=== PATIENT | female | born 1955 | race Caucasian/White ===

== ENCOUNTER 2018-08-15 00:59 | Observation (INO) ==
[2018-08-15 05:54] LABS: Hemoglobin 12.2 g/dL (11.5-15.4); Mean Corpuscular Hemoglobin 26.4 pg (28.0-33.3); Mean Corpuscular Volume 80.1 fL (83.0-100.0); Mean Platelet Volume 10.9 fL (9.4-12.4); Platelet Count 180 K/mcL (140-400); Red Blood Count 4.62 M/mcL (3.82-4.97); Red Cell Distribution Width 15.1 % (11.5-14.5)
[2018-08-15 06:13] LABS: Alanine Aminotransferase 15 Units/L (7-52); Albumin 3.8 g/dL (3.5-5.7); Albumin/Globulin Ratio 1.7 (1.1-2.2); Alkaline Phosphatase 68 Units/L (34-104); Aspartate Amino Transferase 15 Units/L (13-39); BUN/Creatinine Ratio 23 (6-26); Bilirubin,Total 0.5 mg/dL (0.3-1.0); Blood Urea Nitrogen 15 mg/dL (8-23); Calcium 8.5 mg/dL (8.6-10.3); Carbon Dioxide 24 mEq/L (23-29); Chloride 102 mEq/L (98-107); Globulin 2.3 g/dL (2.4-3.5); Glucose 189 mg/dL (70-105); Osmolality,Calculated 294 (280-300); Potassium 3.1 mEq/L (3.5-5.1); Sodium 139 mEq/L (136-145); Total Protein 6.1 g/dL (6.4-8.9); Troponin I < 0.03 ng/mL (< 0.04); eGFR For Non-African Americans > 60 (> 60)
[2018-08-15] MEDS ORDERED: Acetaminophen 325 MG TABLET PO PRN (08:27)
[2018-08-15] MEDS ORDERED: Naloxone 0.4 MG/ML INJ IVP PRN (08:27)
[2018-08-15] MEDS ORDERED: Ondansetron ODT 4 MG TAB.RAPDIS SL PRN (08:27)
[2018-08-15] MEDS ORDERED: *HR* HYDROcodone/Acet 5/325 mg TABLET PO PRN (08:27)
[2018-08-15 09:22] LABS: Cholesterol 100 mg/dL (< 200); HDL Cholesterol 50 mg/dL (40-59); LDL Cholesterol,Calculated 37 mg/dL (0-99); Triglycerides 67 mg/dL (< 150); Troponin I < 0.03 ng/mL (< 0.04)
[2018-08-15] MEDS ORDERED: Regadenoson 0.4 MG/5 ML SYRINGE IVP ONE (10:26)
--- NOTE | 2018-08-15 14:25 | Internal Med History&Physical ---
Date of Encounter: 08/15/18 Time of Encounter: 08:30 Internal Medicine - H&P: HPI Chief complaint: Chest pain Admitted From: Emergency Dept Plans for Post Hospital Care: Home History of present illness: Ms. Larose is a 63 year old female with a known past medical history of hypertension, hyperlipidemia, diabetes type II and morbidly obese patient was sent to [place] emergency room yesterday evening complaining about she just developed sudden onset of chest pressure, 8 of 10 in severity, located left chest wall region and non-radiating. Patient did mention her chest pain centers and shortness of breath, nausea and vomiting. She does work as a teacher in the school. Her mother recently a couple of days ago and she is going through lot of stress lately. She was transferred to our hospital for further care. When I examined the patient on the floor here, she is alert, awake, O x 3. Denied any more active chest pain. Denied any shortness of breath. However patient seems to be depressed. She denied any suicidal ideation. Past Med Surg Social Fam HX - Past Medical History Medical history: diabetes, hypertension Psychiatric history: anxiety, depression - Past Surgical History Additional surgical history: D&C, tubal - Social History Smoking Status: Never smoker Smokeless Tobacco Status: No Alcohol use: none Drug use: none - Family History Mother Living Status: Age at : 82 Cause of : alheimzers Hx Family Cardiac Disorders: Yes Father Living Status: Age at : 61 Cause of : cardiac Hx Family Cardiac Disorders: Yes Internal Medicine - H&P: Meds Empagliflozin [Jardiance] 10 mg PO DAILY 08/15/18 [History] Losartan Potassium [Cozaar] 100 mg PO DAILY 08/15/18 [History] Meloxicam [Mobic] 15 mg PO DAILY 08/15/18 [History] Metoprolol [Lopressor] 50 mg PO DAILY 08/15/18 [History] glipiZIDE [Glipizide] 10 mg PO BID 08/15/18 [History] hydroCHLOROthiazide [Hydrochlorothiazide] 25 mg PO DAILY 08/15/18 [History] Allergy/AdvReac Type Severity Reaction Status Date / Time No Known Allergies Allergy Verified 08/14/18 23:03 All Systems PM: A 10-system review of systems was performed and is negative for pertinent findings except as documented above in the HPI. Review of systems: All the systems are reviewed everything is benign except the systems and symptoms I mentioned in the history of present illness - Constitutional Vitals: Temp Pulse Resp BP Pulse Ox 98.4 F 81 20 147/78 94 08/15/18 12:47 08/15/18 12:47 08/15/18 12:47 08/15/18 12:47 08/15/18 12:47 General appearance: Present: cooperative, A&O X 3, no acute distress, answers questions appropriately Exam: See below - Head Head exam: Present: atraumatic, normal inspection - Neck Neck exam general surgery: Present: supple - Respiratory Respiratory exam: Present: decreased breath sounds. Absent: rales, respiratory distress, rhonchi, wheezes - Cardiovascular Cardiovascular exam: Present: RRR, +S1, +S2. Absent: tachycardia - GI/Abdominal GI/Abdominal exam: Present: normal bowel sounds, soft. Absent: rebound, rigid, tenderness - Extremities Exam Extremities exam: Absent: calf tenderness, pedal edema, tenderness - Back Exam Back exam: Absent: CVA tenderness (L), CVA tenderness (R) - Neurological Exam Neurological exam: Present: alert, oriented X3 - Psychiatric Psychiatric exam: Present: depressed. Absent: homicidal ideation, suicidal ideation - Skin Skin exam: Absent: rash Internal Med - H&P Results - Labs CBC & Chem 7: 08/15/18 05:32 08/15/18 05:32 Labs: Short CBC 08/15/18 Range/Units 05:32 WBC 5.7 (4.3-11.1) K/mcL Hgb 12.2 (11.5-15.4) g/dL Hct 37.0 (35.3-44.9) % Plt Count 180 (140-400) K/mcL BMP 08/15/18 05:32 Sodium 139 Potassium 3.1 L Chloride 102 Carbon Dioxide 24 BUN 15 Creatinine 0.66 Glucose 189 H Calcium 8.5 L Cardiac Enzymes 08/15/18 08/15/18 Range/Units 05:32 08:40 Troponin I < 0.03 < 0.03 (< 0.04) ng/mL Liver Function 08/15/18 Range/Units 05:32 Total Bilirubin 0.5 (0.3-1.0) mg/dL AST 15 (13-39) Units/L ALT 15 (7-52) Units/L Alkaline Phosphatase 68 (34-104) Units/L Albumin 3.8 (3.5-5.7) g/dL - Assessment and Plan (1) Chest pain Current Visit: No Status: Acute Assessment and plan: Will admit the pt into Tele for observation Will place pt on cardiac exercise physiologist check serial troponin so far negative troponin EKG reviewed - NSR , no acute ischemic changes noticed CTA of the chest - no PE will start pt on ASA and Nitro PRN for pain Will check FL Will get stress test since pt is high risk for ACS she may need 2 days stress test due to high BMI Also will check 2 D Echo Qualifiers: Chest pain type: unspecified Qualified Code(s): R07.9 - Chest pain, unspecified (2) Hypertension Current Visit: Yes Status: Acute Assessment and plan: Resumed all home medications stable blood pressure with home medications Qualifiers: Hypertension type: essential hypertension Qualified Code(s): I10 - Essential (primary) hypertension (3) Hyperlipidemia Current Visit: Yes Status: Acute Assessment and plan: Will check lipid profile Qualifiers: Hyperlipidemia type: unspecified Qualified Code(s): E78.5 - Hyperlipidemia, unspecified (4) Diabetes mellitus Current Visit: Yes Status: Acute Assessment and plan: On ADA diet placed her on ISS will check HbA1C in Am Qualifiers: Diabetes mellitus type: type 2 Diabetes mellitus termite renewal inspector insulin use: without half-way use Diabetes mellitus complication status: without complication Qualified Code(s): E11.9 - Type 2 diabetes mellitus without complications (5) Morbid obesity with BMI of 45.0-49.9, adult Current Visit: Yes Status: Acute Assessment and plan: counseled to loose weight she might have MIMI recommend out pt sleep study - Time Spent With Patient Total time spent is greater than 50% in coordination of care (as documented) at patient's floor/unit and/or counseling patient:
[2018-08-15] MEDS ORDERED: D5% in Water 1,000 ML IVC PRN (14:28)
[2018-08-15] MEDS ORDERED: Dextrose Gel 15 GM/37.5 ML TUBE PO PRN ×2 (14:28)
[2018-08-15] MEDS ORDERED: *HR* Dextrose 50 % in Water (Syg) 50 ML SYRINGE IVP PRN (14:28)
[2018-08-15] MEDS: hydroCHLOROthiazide 25 MG TABLET PO SCH (16:19)
[2018-08-15] MEDS: Insulin LISPRO 300 UNITS/3 ML VIAL SQ SCH ×2 (16:57→21:48)
[2018-08-16] MEDS: Insulin LISPRO 300 UNITS/3 ML VIAL SQ SCH ×4 (08:16→20:52)
[2018-08-16] MEDS: hydroCHLOROthiazide 25 MG TABLET PO SCH (08:16)
[2018-08-16] MEDS: (Empagliflozin [Jardiance] 10 MG) PO SCH (08:17)
--- NOTE | 2018-08-16 13:04 | Cardiology Consult Note ---
<SheltonIsabelle J - Last Filed: 08/16/18 13:00> Date of Encounter: 08/16/18 Time of Encounter: 12:00 Assessment and Plan (1) Chest pain Current Visit: No Status: Acute Per cardiology: -Admitted with typical anginal symptoms. Currently chest pain free. -Troponins neagtive x3. -EcG with no acute ishchemic changes noted. -TTE with LVEF 55-60%, no segmental wall motion abnormalities noted. -Stress test abnormal with inferior and inferolateral ischemia, SDS 6. -On BB. -With typical angina, and abnromal stress test, recommend LHC. Risks versus benefits of LHC explained to patient, who states understanding and agreeable to proceed. -Will start ASA and statin. Qualifiers: Chest pain type: chest pain due to myocardial ischemia Ischemic chest pain type: stable angina pectoris Qualified Code(s): I20.8 - Other forms of angina pectoris (2) Abnormal stress test Current Visit: Yes Status: Acute Per cardiology: -Stress abnormal as above. -See chest pain. Discussion w patient/family: The assessment and plan as outlined above was discussed with the patient who expressed understanding and agreement. All questions were answered. Thank you for involving us in the care of your patient. Please call with any questions. Discussed and reviewed with . History of Present Illness Consult date: 08/16/18 Requesting physician: Mirian Samuel Consult reason: abnormal stress Chief complaint: chest pain History of present illness: Ms. Larose is a 63 year old female with a relevant past medical history of HTN, DM, depression, family history of CAD, who presented to [facility] with complaints of chest pain. Patient states she just recently lost her mom. States it was her first day back to work and she was walking the kids to the bus, when she had sudden onset of left chest pressure. No radiation. Reports nausea and vomiting. States she drove home, however does not remember driving home and woke up in her nightgown and had lost control of her bladder. Denies current chest pain. Denies shortness of breath. Denies increased fatigue. Past Med Surg Social Fam HX - Past Medical History Attestation: Yes The following information was validated with the patient. Source: patient, old records reviewed Medical history: diabetes, hypertension Psychiatric history: anxiety, depression - Past Surgical History Additional surgical history: D&C, tubal - Social History Smoking Status: Never smoker Smokeless Tobacco Status: No Alcohol use: none Drug use: none - Family History Mother Living Status: Age at : 82 Cause of : alheimzers Hx Family Cardiac Disorders: Yes Father Living Status: Age at : 61 Cause of : cardiac Hx Family Cardiac Disorders: Yes Medications and Allergies Empagliflozin [Jardiance] 10 mg PO DAILY 08/15/18 [History] Losartan Potassium [Cozaar] 100 mg PO DAILY 08/15/18 [History] Meloxicam [Mobic] 15 mg PO DAILY 08/15/18 [History] Metoprolol Succinate [Toprol Xl] 50 mg PO DAILY 08/15/18 [History] glipiZIDE [Glipizide] 10 mg PO BID 08/15/18 [History] hydroCHLOROthiazide [Hydrochlorothiazide] 25 mg PO DAILY 08/15/18 [History] Allergy/AdvReac Type Severity Reaction Status Date / Time metformin AdvReac Diarrhea Verified 08/15/18 16:38 All Systems Review: The remainder of the systems were reviewed and are negative - Cardiovascular Cardiovascular: as per HPI, chest pain with exertion - Gastrointestinal Gastrointestinal: nausea Physical Examination Vital Signs, Last 4 Hours Temp Pulse Resp BP Pulse Ox 08/16/18 10:50 98.4 F 58 16 103/64 96 General: Conversant, No Apparent Distress HEENT: Atraumatic, Normocephaly, Mucus Membranes Moist Neck: No JVD, Normal carotid pulses Cardiac: Reg Rate and Rhythm, Normal S1 and S2, No Murmur Lungs: Normal Breath Sounds, No Wheeze, Rales, Rhonchi Neuro: Alert and responsive, No focal deficits noted Abdomen: Soft, Non-Tender Skin: No rashes noted on visualized skin Musculoskeletal: No Chest Wall Tenderness Extremities: No Clubbing, No Cyanosis, No Edema, Normal Pulses Results 08/15/18 05:32 08/15/18 05:32 Lab Results Impressions Echocardiogram 08/15/18 14:31 Impressions: LVEF 55-60%. Normal LV chamber size, wall thickness and function. Normal right ventricular structure and function. No significant valvular dysfunction. No pulmonary hypertension. Left Ventricular Wall Motion: Rest Echo Findings All wall segments showed normal motion. Findings: Study Quality * Technically adequate exam. ECG Findings * Normal sinus rhythm. Left Ventricle * LVEF 55-60%. * Normal LV chamber size, wall thickness and systolic function. * Normal left ventricular diastolic function. Right Ventricle * Normal right ventricular structure and function. Left Atrium * Normal left atrial size. Right Atrium * Normal right atrial size. Interatrial Septum * Interatrial septum not well evaluated. * No evidence of PFO by color Doppler. Aortic Valve * Trileaflet aortic valve with normal function. * No aortic stenosis. * No aortic regurgitation. Mitral Valve * Normal mitral valve structure. * No mitral stenosis. * Trace mitral regurgitation. Tricuspid Valve * Normal tricuspid valve structure. * No tricuspid stenosis. * Trace tricuspid regurgitation. * Estimated RVSP is 19 mmHg. * Estimated RA pressure is 3 mmHg. * No pulmonary hypertension. Pulmonic Valve * Pulmonic valve is not well visualized. * No pulmonic stenosis. * No pulmonic regurgitation. Aorta * Normally sized aortic root. Pericardium * The pericardium appears normal. IVC * The IVC is not dilated. * > 50% respiratory change Active Medications Acetaminophen (Tylenol) 650 mg PO Q6HR PRN PRN Reason: Mild Pain/Fever Stop: 02/14/19 08:28 Hydrocodone Bitart/Acetaminophen ([place] 5-325 Mg) 1 tab PO Q6HR PRN PRN Reason: Moderate Pain Stop: 02/14/19 08:28 Aspirin (Aspirin Ec) 81 mg PO DAILY GEE Stop: 02/15/19 12:16 Atorvastatin Calcium (Lipitor) 40 mg PO HS GEE Stop: 02/15/19 21:01 Calcium Carbonate (Tums) 1,000 mg PO Q4HR PRN; Protocol PRN Reason: Heartburn Stop: 02/14/19 10:02 Dextrose/Water (Dextrose 50% (Syg)) 25 ml IVP AD PRN PRN Reason: Hypoglycemia Stop: 02/14/19 14:29 Docusate Sodium (Colace) 100 mg PO BID PRN PRN Reason: Constipation Stop: 02/14/19 09:01 Glucagon (Glucagen) 1 mg IM ONCE PRN PRN Reason: Hypoglycemia Stop: 02/14/19 14:29 Glucose (Gluctose) 15 gm PO ONCE PRN PRN Reason: Hypoglycemia Stop: 02/14/19 14:29 Glucose (Gluctose) 30 gm PO ONCE PRN PRN Reason: Hypoglycemia Stop: 02/14/19 14:29 Hydrochlorothiazide (Hydrochlorothiazide) 25 mg PO DAILY [facility]; Protocol Stop: 02/14/19 14:46 Last Admin: 08/16/18 08:16 Dose: 25 mg Dextrose (Dextrose 5%) 1,000 mls @ 100 mls/hr IVC .Q10H PRN PRN Reason: HYPOGLYCEMIA Stop: 02/14/19 14:29 Insulin Human Lispro (Humalog) 0 units SQ HS [facility]; Protocol Stop: 02/14/19 21:01 Last Admin: 08/15/18 21:48 Dose: Not Given Insulin Human Lispro (Humalog) 0 units SQ TIDAC [facility]; Protocol Stop: 02/14/19 16:31 Last Admin: 08/16/18 08:16 Dose: Not Given Losartan Potassium (Cozaar) 100 mg PO DAILY [facility] Stop: 02/14/19 14:46 Last Admin: 08/16/18 08:16 Dose: 100 mg Metoprolol Tartrate (Lopressor) 50 mg PO DAILY [facility] Stop: 02/14/19 14:46 Last Admin: 08/16/18 08:16 Dose: 50 mg Naloxone HCl (Narcan) 0.4 mg IVP Q2M PRN PRN Reason: SEE COMMENTS Stop: 02/14/19 08:28 Omeprazole (Prilosec) 20 mg PO DAILY@0630 [facility]; Protocol Stop: 02/15/19 06:31 Last Admin: 08/16/18 06:06 Dose: Not Given Ondansetron HCl (Zofran Odt) 4 mg SL Q8HR PRN PRN Reason: Nausea And Vomiting Stop: 02/14/19 08:28 Pharmacy Profile Note (Patient Taking Own Medication) 0 each PO DAILY [facility] Stop: 02/15/19 09:01 Last Admin: 08/16/18 08:17 Dose: Not Given Potassium Chloride (Potassium Chloride) 40 meq PO ONCE ONE Stop: 08/16/18 12:12 Laboratory Tests 08/15/18 08/15/18 08/15/18 05:32 05:32 08:40 Hgb 12.2 Plt Count 180 Potassium 3.1 L Creatinine 0.66 Troponin I < 0.03 < 0.03 08/15/18 14:36 Hgb Plt Count Potassium Creatinine Troponin I < 0.03 - Imaging and Cardiology Chest Xray: report reviewed Stress Test: report reviewed Echo: report reviewed Cardiac cath: pending - EKG Interpretation EKG results cardiology: personally reviewed (ECG with ST, HR 106.), other (Telemetry reviewed with average HR previous 12 hours noted to be 64, SR. PVCs and PACs noted.) Consult Discharge Plan - Plan Referrals: Caio Bauman MD [Primary Care Provider] - 08/21/18 2:30 pm <Atilio Ramírez A - Last Filed: 08/16/18 14:57> Date of Encounter: 08/16/18 - Attending Attestation I have personally performed a face to face evaluation on this patient. I have reviewed and agree with the documented findings and care plan as documented by the [facility]. History and Exam by me shows: 63-year-old pleasant female with history of hypertension, diabetes, obesity presented with angina and found to have myocardial perfusion imaging positive for ischemia (reversible mid-basal inferior and inferolateral perfusion defect of moderate size and moderate intensity, SDS = 6) AAOX3 in NAD at the bedside Hemodynamically stable Cardiopulmonary exam revealed S1, S2, no murmur; clear lungs Rhythm reviewed - sinus rhythm, no acute ST T changes Echo preserved EF, no significant valvular heart disease Impression/plan: Atypical chest pain/ abnormal stress test- I agree with cardiac catheterization. Details of procedure, risks benefits and alternatives were explained to the patient and she wishes to proceed. Continue aspirin, beta long, high intensity statin. Lifestyle modification to lose weight. Further recommendations to follow. Atilio Agosto MD FAC Assessment and Plan Discussion w patient/family: The assessment and plan as outlined above was discussed with the patient and/or family members who expressed understanding and agreement. All questions were answered. Thank you for involving us in the care of your patient. Please call with any questions. History of Present Illness History of present illness: Ms. Larose is a 63 year old female All Systems Review: The remainder of the systems were reviewed and are negative Physical Examination Vital Signs, Last 4 Hours Temp Pulse Resp BP Pulse Ox 08/16/18 10:50 98.4 F 58 16 103/64 96 Results 08/15/18 05:32 08/15/18 05:32 Lab Results 08/15/18 14:36 Troponin I < 0.03
--- NOTE | 2018-08-16 13:50 | Internal Med Progress Note ---
Hospitalist Progress Note - Encounter Date of Encounter: 08/16/18 Time of Encounter: 13:47 - Subjective Interval History: Seen and examined at bedside. Patient is new to me, information obtained from chart review and patient report. Overall says she feels better. No further chest pain or shortness of breath. She does report multiple loose stools and mild nausea. Does not have much of an appetite. - Exam Vitals: Temp Pulse Resp BP Pulse Ox 98.4 F 58 16 103/64 96 08/16/18 10:50 08/16/18 10:50 08/16/18 10:50 08/16/18 10:50 08/16/18 10:50 Exam: General appearance: Present: A&O X 3, pleasant, no acute distress - Head Head exam: Present: atraumatic, normocephalic - Eye Eye exam: Present: PERRL, conjuntiva pink, sclera anicteric Pupils: Present: PERRL - Neck Neck exam general surgery: Present: supple, trachea midline. Absent: lymphadenopathy - Respiratory Respiratory exam: Present: chest wall tenderness, CTAB. Absent: accessory muscle use, rales, rhonchi, wheezes - Cardiovascular Cardiovascular exam: Present: RRR, +S1, +S2. Absent: diastolic murmur, gallop, rubs, systolic murmur - GI/Abdominal GI/Abdominal exam: Present: normal bowel sounds, soft, no peritoneal signs. Absent: distended, tenderness - Extremities Exam Extremities exam: Present: warm, radial pulses palpable and symmetrical. Absent: calf tenderness, cyanotic, pedal edema - Neurological Exam Neurological exam: Present: CN II-XII intact, oriented X3, no focal deficits. Absent: pronater drift, facial droop, speech deficit - Skin Skin exam: Present: dry, intact - Assessment and Plan (1) Chest pain Current Visit: No Status: Acute Assessment and Plan: presented with nonexertional/nonradiating chest pain. Serial troponin negative. EKG without acute ST changes. TTE with EF 55%. Stress test with moderate size reversible defect. NPO. [facility] planned for 08/16. Cardiology following (2) Hypertension Current Visit: Yes Status: Acute Assessment and Plan: per hx. BP controlled. Cont home BP medication. Monitor BP and titrate PRN (3) Hyperlipidemia Current Visit: Yes Status: Acute Assessment and Plan: LDL 37; statin initiated per cardiology. (4) Diabetes mellitus Current Visit: Yes Status: Acute Assessment and Plan: per hx. Holding home oral hypoglycemics. SSI. Monitor blood sugar and titrate PRN (5) Morbid obesity with BMI of 45.0-49.9, adult Current Visit: Yes Status: Acute Assessment and Plan: counseled to loose weight she might have MIMI recommend out pt sleep study - Time Spent with Patient Total time spent is greater than 50% in coordination of care (as documented) at patient's floor/unit and/or counseling patient: Internal Medicine: Result - Labs CBC & Chem 7: 08/15/18 05:32 08/15/18 05:32 Labs: Cardiac Enzymes 08/15/18 Range/Units 14:36 Troponin I < 0.03 (< 0.04) ng/mL - Impressions Impressions Echocardiogram 08/15/18 14:31 Impressions: LVEF 55-60%. Normal LV chamber size, wall thickness and function. Normal right ventricular structure and function. No significant valvular dysfunction. No pulmonary hypertension. Left Ventricular Wall Motion: Rest Echo Findings All wall segments showed normal motion. Findings: Study Quality * Technically adequate exam. ECG Findings * Normal sinus rhythm. Left Ventricle * LVEF 55-60%. * Normal LV chamber size, wall thickness and systolic function. * Normal left ventricular diastolic function. Right Ventricle * Normal right ventricular structure and function. Left Atrium * Normal left atrial size. Right Atrium * Normal right atrial size. Interatrial Septum * Interatrial septum not well evaluated. * No evidence of PFO by color Doppler. Aortic Valve * Trileaflet aortic valve with normal function. * No aortic stenosis. * No aortic regurgitation. Mitral Valve * Normal mitral valve structure. * No mitral stenosis. * Trace mitral regurgitation. Tricuspid Valve * Normal tricuspid valve structure. * No tricuspid stenosis. * Trace tricuspid regurgitation. * Estimated RVSP is 19 mmHg. * Estimated RA pressure is 3 mmHg. * No pulmonary hypertension. Pulmonic Valve * Pulmonic valve is not well visualized. * No pulmonic stenosis. * No pulmonic regurgitation. Aorta * Normally sized aortic root. Pericardium * The pericardium appears normal. IVC * The IVC is not dilated. * > 50% respiratory change Consult Discharge Plan - Plan Referrals: Caio Bauman MD [Primary Care Provider] - 04/10/19 2:30 pm (1) Chest pain Qualifiers: Chest pain type: chest pain due to myocardial ischemia Ischemic chest pain type: stable angina pectoris Qualified Code(s): I20.8 - Other forms of angina pectoris (2) Hypertension Qualifiers: Hypertension type: essential hypertension Qualified Code(s): I10 - Essential (primary) hypertension (3) Hyperlipidemia Qualifiers: Hyperlipidemia type: unspecified Qualified Code(s): E78.5 - Hyperlipidemia, unspecified (4) Diabetes mellitus Qualifiers: Diabetes mellitus type: type 2 Diabetes mellitus intermediate project manager insulin use: w ithout detention use Diabetes mellitus complication status: without compli cation Qualified Code(s): E11.9 - Type 2 diabetes mellitus without complic ations
[2018-08-16] MEDS: Aspirin Enteric Coated 81 MG Tablet PO SCH (14:02)
--- NOTE | 2018-08-16 15:09 | Pre-Sedation Evaluation ---
Pre-sedation evaluation - Pre-sedation checklist Date of procedure: 08/16/18 Procedure: LHC Recent Vitals: Last Vital Signs Temp 98.4 F 08/16/18 10:50 Pulse 58 08/16/18 10:50 Resp 16 08/16/18 10:50 BP 103/64 08/16/18 10:50 Pulse Ox 96 08/16/18 10:50 ASA Classification *see protocol: CLASS II-Mild systemic disease Cardiac Registry (Cardio Only) - Functional Capacity Functional Capacity: >=4 METS with symptoms - Clincal Frailty Scale Clinical Frailty Scale: Managing Well
[2018-08-16] MEDS ORDERED: Nitroglycerin 1,000 MCG/10 ML VIAL IV ONE (15:21)
[2018-08-16] MEDS ORDERED: *HR* Heparin 10,000 UNIT/10 ML VIAL ONE (15:21)
[2018-08-16] MEDS ORDERED: 0.9 % Sodium Chloride 1,000 ML ONE ×2 (15:21→16:04)
[2018-08-16] MEDS ORDERED: Heparin 1,000 UNITS/500 mL 500 ML ONE (15:21)
[2018-08-16] MEDS ORDERED: ISOVUE-370 200 ML INFUS..BTL ONE (15:21)
[2018-08-16] MEDS ORDERED: *HR* Midazolam HCl 2 MG/2 ML VIAL ONE (17:31)
[2018-08-16] MEDS ORDERED: *HR* FentaNYL (PF) 100 MCG/2 ML VIAL ONE (17:31)
[2018-08-16] MEDS ORDERED: Water for inj. (sterile) 10 ML IV ONE (17:58)
--- NOTE | 2018-08-16 18:22 | Invasive Diagnostic Lab Proc ---
Name: Ashley Larose Date of Study: 08/16/2018 Date: 1955 Ht: 61.8in Medical Record#: [id number] Age: 63 Wt: 257.94lb Gender: Female BSA: 2.13 Order #: [id number] BMI: 47.47 Physicians Procedure Physician: Evens Green MD Referring MD: Referring MD: Staff Name Position Time In Melissa Quigley RT (R) Scrub 04:17 PM ArielMichael RT (R) Monitor 04:17 PM Phyllis Campbell RN Outpatient Facility Physical Therapist 04:18 PM Debora Hernandez RN Outpatient Facility Physical Therapist 05:52 PM La Nena Bahena RN Outpatient Facility Physical Therapist 05:59 PM Indications Indication Abnormal Test - Stress Procedures Performed Procedure L HRT ARTERY/VENTRICLE ANGIO Pre-Procedure Checklist Informed consent is complete signed and on chart. H&P is on chart. ID band is on and ID verified with patient. Patient NPO for procedure The procedure was described for the patient and questions were answered. Blood Pressure: 103/64 ECG is on chart. Rhythm: NSR Plan of Care Patient will tolerate the procedure without complications. Adequate level of comfort will be maintained. Hemodynamics will remain stable Patient will recover from procedure without complications. Respiratory function will be maintained. Cardiac rhythm will remain stable. Patient temperature will be maintained. Patient and/or family have verbalized understanding of the procedure. Patient Education Chief Complaint/Reason for Test: Cardiac Cath Developmental Category: Adult (18-64 years) Developmentally Appropriate for Age: Yes Learning Barriers: None Education Needs: Procedure Education Method: Verbal Information Taught: Cardiac Cath Educational Evaluation: Able to repeat information Intravenous Access Time IV Size Location DC'd Fluid/Drip Rate Units RN 12:58 PM 20g 1 1/4" Patent On Arrival Rt Antecubital 0.9NaCl 25 mg Phyllis Campbell RN 12:58 PM 20g 1 1/4" Patent On Arrival Rt Hand Allergies metformin Vital Signs Time BP (mmHg) HR (bpm) O2 Sat. RR (bpm) LOC 04:19 PM 154 / 80 61 97 % 15 5 = Fully awake and oriented or at pre-proc level 05:31 PM 154 / 80 62 97 % 15 05:36 PM 128 / 62 65 99 % 21 05:41 PM 123 / 60 62 99 % 17 05:46 PM 149 / 74 58 99 % 12 05:51 PM 128 / 67 61 100 % 14 05:56 PM 136 / 68 58 100 % 25 Procedural Medications Time Medication Dose Units Method Given By 05:30 PM Oxygen 2 L/min nasal cannula Phyllis Campbell RN 05:32 PM Versed 1 mg Intravenous Phyllis Campbell RN 05:32 PM Fentanyl 50 mcg Intravenous Phyllis Campbell RN 05:44 PM Lidocaine 2% 20 ml Subcutaneous Evens Green MD 05:46 PM Versed 0.5 mg Intravenous Phyllis Campbell RN 05:46 PM Fentanyl 25 mcg Intravenous Phyllis Campbell RN 05:56 PM Ancef 1 gram Intravenous Debora Hernandez RN ASA Classification: CLASS II- Mild systemic disease (i.e. well-controlled diabetes, hypertension, asthma, cigarette smoking) Sharron Score Preprocedure Postprocedure Activity 2- Moves 4 extremities sustained head lift Activity 2- Moves 4 extremities sustained head lift Circulation 2- SBP +/= 20 points of pre-anesthetic level Circulation 2- SBP +/= 20 points of pre-anesthetic level Consciousness 2- Awake and alert oriented x 3 Consciousness 2- Awake and alert oriented x 3 O2 Saturation 2- Able to maintain O2 satruation of 92% on room air O2 Saturation 2- Able to maintain O2 satruation of 92% on room air Respiratory 2- Able to deep breathe and cough well Respiratory 2- Able to deep breathe and cough well Total Score 10 Total Score 10 Contrast Agent: Isovue Diagnostic Contrast: 46 ml Total Contrast: 46 ml Fluoro Dose: 22 mGy Procedure Log Time Note Enter By 04:16 PM CathStat 04:17 PM Pt arrived to rn labor and delivery 2 at 16:17 04:17 PM Patient charges- Angio tray pack, Navilyst 3mm J, Pulse Oximetry and ACIST tubing and transducer 04:17 PM Melissa Quigley RT (R) Position: Scrub Time in: 16:17 04:18 PM Michael George RT (R) Position: Monitor Time in: 16:17 04:18 PM Phyllis Campbell RN Position: Outpatient Facility Physical Therapist Time in: 16:18 04:19 PM Case Delayed No [email or web address] 04:19 PM Physician arrived 16:19 04:19 PM ASA Class CLASS II- Mild systemic disease (i.e. well-controlled diabetes, hypertension, asthma, cigarette smoking) [email or web address] 04:19 PM Meet and greet completed [email or web address] 04:19 PM Sign in performed according to hospital policy. Informed consent was obtained. [email or web address] 04:19 PM Time: 16:19 Patient comfortable and pain free: Yes [email or web address] 04:19 PM Time: 16:19LOC: 5 = Fully awake and oriented or at pre-proc level [email or web address] 04:21 PM Patient remains in Manager Equipment 2 due to a stemi. [email or web address] 04:21 PM Patients stated would be okay to stay in Lab on cart during other procedure. [email or web address] 05:29 PM Sign in performed according to hospital policy. Informed consent was obtained. Second sign in due to physician leaving for a stemi. [email or web address] 05:29 PM Procedure start 17:29 [email or web address] 05:30 PM Hair removed from procedure site in procedure lab using clippers. Bilateral groin prepped with Chloraprep by Melissa Quigley (Jennifer), then patient was draped. Skin intact. [email or web address] 05:30 PM Time: 17:30 Oxygen on at 2 L/min per nasal cannula by Phyllis Campbell RN ilson 05:30 PM Recorded ECG: HR=60 Condition=Condition 1 05:30 PM Vitals capture started with the following parameters, Patient=Adult, Interval=5 min, Initial Tboeppjh=587 mmHg, Deflation Rate=5 mmHg, Cuff placed on Right Arm 05:31 PM HR=62 bpm, GMAV=814/80 mmhg, SpO2=97.0 %, Resp=15 B/min 05:32 PM Time: 17:32 Versed 1 mg Intravenous Given by Phyllis Campbell RN 05:32 PM Time: 17:32 Fentanyl 50 mcg Intravenous Given by Phyllis Campbell RN 05:36 PM HR=65 bpm, DOIA=253/62 mmhg, SpO2=99.0 %, Resp=21 B/min 05:38 PM Pressure channel 1 zeroed. 05:40 PM Pressure channel 1 zeroed. 05:41 PM HR=62 bpm, QHKH=967/60 mmhg, SpO2=99.0 %, Resp=17 B/min 05:43 PM Time out was performed according to hospital policy. Conscious sedation and anesthesia was achieved (see medication log with in this report above) [email or web address] 05:45 PM Time: 17:44 20 ml Lidocaine 2% to right groin Subcutaneous Given by Evens Green MD 05:45 PM Micro-Introducer Kit utilized for sheath placement [email or web address] 05:46 PM Time: 17:46 Versed 0.5 mg Intravenous Given by Phyllis Campbell RN 05:46 PM Time: 17:46 Fentanyl 25 mcg Intravenous Given by Phyllis Campbell RN 05:46 PM HR=58 bpm, YDNS=807/74 mmhg, SpO2=99.0 %, Resp=12 B/min 05:47 PM hand injected femoral angiogram 3 cc contrast [email or web address] 05:47 PM Access obtained by percutaneous puncture. 6Fr 10cm Terumo Aspen sheath placed in right Femoral artery. [id number] [email or web address] 05:48 PM 0.035 145cm Navilyst 3mmJ wire [id number] [email or web address] 05:48 PM 5Fr FR 4 catheter inserted over the wire [facility] bw 05:48 PM Recorded Pressure: Ao, HR=60, Condition=Condition 1 (Aorta) Ao 99/47/69 05:49 PM RCA angiography performed in multiple views. [email or web address] 05:49 PM Catheter removed [email or web address] 05:49 PM 5Fr FL 4 catheter inserted over the wire [facility] bw 05:51 PM LCA angiography performed in multiple views. [email or web address] 05:51 PM Recorded Pressure: Ao, HR=62, Condition=Condition 1 (Aorta) Ao 90/55/71 05:51 PM Coronary Dominance: Left [email or web address] 05:51 PM Lesion found in Proximal LMCA. Pre Stenosis: 25 Pre MONIQUE Flow: [email or web address] 05:51 PM HR=61 bpm, VWMU=989/67 mmhg, NgN2=865.0 %, Resp=14 B/min 05:51 PM Left Main Coronary Artery with 25% stenosis [email or web address] 05:52 PM Debora Hernandez RN Position: Outpatient Facility Physical Therapist Time in: 17:52 to relieve Phyllis Campbell RN 05:53 PM Catheter removed bw 05:53 PM Lesion found in Distal RCA. Pre Stenosis: 25 Pre MONIQUE Flow: 2 05:53 PM Right Coronary, Right Posterior Descending Arteries with Right Posterolateral and Acute Marginal branches with 25 % stenosis. If graft is supplying this area, 0 % stenosis [email or web address] 05:53 PM Pressure channel 1 zero failed. 05:53 PM Pressure channel 1 zero failed. 05:53 PM Pressure channel 1 zeroed. 05:54 PM Catheter crossed the aortic valve and was selectively placed in the left ventricle. Pressures recorded on pullback for left heart catheterization. [email or web address] 05:54 PM Recorded Pressure: LV, HR=62, Condition=Condition 1 (Left Ventricle) LV 118/-12/7 05:54 PM Recorded Pressure: LV, Ao, HR=59, Condition=Condition 1 (Left Ventricle) LV 117/-14/0, (Aorta) Ao ?/?/? 05:54 PM Catheter removed bw 05:56 PM HR=58 bpm, JOES=375/68 mmhg, IdF7=543.0 %, Resp=25 B/min 05:56 PM Time: 17:56 Ancef 1 gram Intravenous Given by Debora Hernandez RN [facility] 05:57 PM Arterial sheath pulled, Angio-seal closure device used and was Successful [id number] S/N. 05:57 PM Procedure completed at 17:57 08/16/2018 [facility] 05:59 PM Sign out completed: Radiation Dose 13.4 Gy, 22.3 mGy/cm2 Fluoro Time: 1.4 Isovue 370 - 200ml contrast 46 ml given by Evens Green MD. Complications: None. The patient was discharged out of the ballistics [facility] in stable condition. Sedation minutes 26. Cardiac Rehab Consult needed: No. Confirmed administered medications: Yes [facility] 05:59 PM Isovue 370 - 200ml,1 Bottle(s) used. 05:59 PM La Nena Bahena RN Position: Outpatient Facility Physical Therapist Time in: 17:59 2 05:59 PM Estimated Blood Loss: less than 20cc [email or web address] 05:59 PM Post ECG NSR [email or web address] 06:00 PM Post Blood Pressure 136/68 [email or web address] 06:00 PM Information taught Cardiac Cath and Angioseal [email or web address] 06:00 PM Education needs Procedure, Plan of Care, and Disease Process [email or web address] 06:00 PM Learning barriers :Sedated [email or web address] 06:00 PM Education Methods Verbal [email or web address] 06:00 PM Education evaluation Able to repeat information [email or web address] 06:00 PM Site status No bleeding/hematoma - Rt Groin as reported by Melissa Quigley RT (R) at 18:00 [email or web address] 06:00 PM Opsite applied [email or web address] 06:00 PM Delay to floor No [email or web address] 06:01 PM Family placed in consult room. [email or web address] 06:01 PM Complications: None [email or web address] 06:11 PM Report given to [place] MUNIZ Pt taken to Holding room Room #33. 18:07 [email or web address] 06:12 PM Patient out of room: 18:12 [email or web address] Complications Complication None None Hemodynamics Pressures Site Systolic/A Wave Diastolic/V Wave Mean AO 99 47 69 AO 90 55 71 LV 118 -12 7 LV 117 -14 0 AO Post Procedure Information Blood Pressure: 136/68 mmHg Rhythm: NSR Post procedural instructions were given Closure Device Time Device Success/Fail 08/16/2018 5:57:00 PM Angio-Seal VIP Successful Site Checks Time Location Status Staff Sheath In? Note 06:00 PM Rt Groin No bleeding/hematoma Melissa Quigley RT (R) Pulses Time Site Pre-Procedure Post-Procedure Note 08/16/2018 12:58:00 PM Bilateral DP & PT 2+ 2+ 08/16/2018 12:58:00 PM Bilateral radial 2+ Updated by Michael George RT (R) on 08/16/2018 6:13:31 PM Michael George RT electronically signed on 08/16/2018 6:14:01 PM with status of Final
[2018-08-17] MEDS ORDERED: *HR* Enoxaparin 40 MG/0.4 ML SYRINGE SQ SCH (06:00)
[2018-08-17 06:39] LABS: Hematocrit 38.3 % (35.3-44.9); Hemoglobin 12.7 g/dL (11.5-15.4); Mean Corpuscular HGB Conc 33.2 g/dL (31.6-35.5); Mean Corpuscular Hemoglobin 26.6 pg (28.0-33.3); Mean Corpuscular Volume 80.3 fL (83.0-100.0); Mean Platelet Volume 10.9 fL (9.4-12.4); Platelet Count 166 K/mcL (140-400); Red Blood Count 4.77 M/mcL (3.82-4.97); Red Cell Distribution Width 14.9 % (11.5-14.5)
[2018-08-17 06:55] LABS: Alanine Aminotransferase 24 Units/L (7-52); Albumin 3.7 g/dL (3.5-5.7); Albumin/Globulin Ratio 1.7 (1.1-2.2); Alkaline Phosphatase 62 Units/L (34-104); Aspartate Amino Transferase 21 Units/L (13-39); BUN/Creatinine Ratio 22 (6-26); Bilirubin,Total 0.4 mg/dL (0.3-1.0); Blood Urea Nitrogen 13 mg/dL (8-23); Calcium 8.6 mg/dL (8.6-10.3); Carbon Dioxide 28 mEq/L (23-29); Chloride 100 mEq/L (98-107); Globulin 2.2 g/dL (2.4-3.5); Glucose 160 mg/dL (70-105); Osmolality,Calculated 288 (280-300); Sodium 137 mEq/L (136-145); Total Protein 5.9 g/dL (6.4-8.9); eGFR For Non-African Americans > 60 (> 60)
[2018-08-17] MEDS: hydroCHLOROthiazide 25 MG TABLET PO SCH (07:38)
[2018-08-17] MEDS: Aspirin Enteric Coated 81 MG Tablet PO SCH (07:38)
[2018-08-17] MEDS: Insulin LISPRO 300 UNITS/3 ML VIAL SQ SCH (07:38)
[2018-08-17 07:39] VITALS: BP 135/63
[2018-08-17] MEDS: (Empagliflozin [Jardiance] 10 MG) PO SCH (07:41)
--- NOTE | 2018-08-17 07:57 | Discharge Summary ---
Orders not resulted at time of discharge: Pending orders 08/15/18 08:31 NM eugene perf SPECT multi [NM] Routine 08/16/18 12:39 CL Cardiac Catheterization [CL] Routine 08/17/18 05:38 Hgb A1C AM 04008/18/18 04:00 CMP [Comprehensive Metabolic Panel] AM 0400 Complete Blood Count w/o Diff [HEME] AM 04008/19/18 04:00 CMP [Comprehensive Metabolic Panel] AM 0400 Complete Blood Count w/o Diff [HEME] AM 04008/20/18 04:00 CMP [Comprehensive Metabolic Panel] AM 0400 Complete Blood Count w/o Diff [HEME] AM 04008/21/18 04:00 CMP [Comprehensive Metabolic Panel] AM 0400 Complete Blood Count w/o Diff [HEME] AM 040 Date of Encounter: 08/17/18 Time of Encounter: 07:54 - Discharge Diagnosis (1) Chest pain Priority: Primary Status: Acute Qualifiers: Chest pain type: chest pain due to myocardial ischemia Ischemic chest pain type: stable angina pectoris Qualified Code(s): I20.8 - Other forms of angina pectoris (2) Hypertension Priority: Secondary Status: Acute Qualifiers: Hypertension type: essential hypertension Qualified Code(s): I10 - Essential (primary) hypertension (3) Hyperlipidemia Priority: Secondary Status: Acute Qualifiers: Hyperlipidemia type: unspecified Qualified Code(s): E78.5 - Hyperlipidemia, unspecified (4) Diabetes mellitus Priority: Secondary Status: Acute Qualifiers: Diabetes mellitus type: type 2 Diabetes mellitus manager terminal insulin use: without manager terminal use Diabetes mellitus complication status: without complication Qualified Code(s): E11.9 - Type 2 diabetes mellitus without complications (5) Morbid obesity with BMI of 45.0-49.9, adult Priority: Secondary Status: Acute Hospital course: Ms. Larose is a 63 year old female with a known past medical history of hypertension, hyperlipidemia, diabetes type II and morbidly obese who presented with sudden onset of chest pressure, 8 of 10 in severity, located left chest wall region and non-radiating. There was associated nausea and vomiting. She does work as a teacher in the school. Her mother recently a couple of days ago and she is going through lot of stress lately. EKG and troponins were unremarkable. She had an abnormal stress test but a negative heart catheter while she was here. She had not experienced any chest pain or nausea vomiting while she was hospitalized. Remained hemodynamic stable. She was discharged on 08/17/2018. - Time Spent with Patient Total time spent providing and/or coordinating discharge services: Time spent: Greater than 30 minutes - Discharge Medications Prescriptions: Continue Metoprolol Succinate [Toprol Xl] 50 mg PO DAILY Meloxicam [Mobic] 15 mg PO DAILY Losartan Potassium [Cozaar] 100 mg PO DAILY hydroCHLOROthiazide [Hydrochlorothiazide] 25 mg PO DAILY glipiZIDE [Glipizide] 10 mg PO BID Empagliflozin [Jardiance] 10 mg PO DAILY Home Medications: Empagliflozin [Jardiance] 10 mg PO DAILY 08/15/18 [History] Losartan Potassium [Cozaar] 100 mg PO DAILY 08/15/18 [History] Meloxicam [Mobic] 15 mg PO DAILY 08/15/18 [History] Metoprolol Succinate [Toprol Xl] 50 mg PO DAILY 08/15/18 [History] glipiZIDE [Glipizide] 10 mg PO BID 08/15/18 [History] hydroCHLOROthiazide [Hydrochlorothiazide] 25 mg PO DAILY 08/15/18 [History] Allergies/Adverse Reactions: Allergy/AdvReac Type Severity Reaction Status Date / Time metformin AdvReac Diarrhea Verified 08/15/18 16:38 Date of admission: 08/15/18 02:48 Primary care physician: Caio Bauman MD Consults: 08/16/18 11:59 Consult to Cardiology [CONS] Routine Comment: Consulting Provider: Cardiology Karina Reason for Consult: abnormal stress test Call Completed: No - Constitutional Vitals: Temp Pulse Resp BP Pulse Ox 98.3 F 83 16 135/63 98 08/17/18 07:32 08/17/18 07:32 08/17/18 07:32 08/17/18 07:32 08/17/18 07:32 General appearance: Present: cooperative, A&O X 3, no acute distress, answers questions appropriately Exam: GEN: NAD CVS: RRR. S1, S2, No m/r/g RESP: CTAB ABD: Soft, NT, ND, +BS EXT: No edema. 2+ DP. No rashes NEURO: Nonfocal - Patient Status Disposition: Home, Self-Care Condition: Fair Overall status at discharge: patient is progressing back to baseline - Discharge Instructions Follow Up With: Caio Bauman MD [Primary Care Provider] - 08/21/18 2:30 pm - Diet and Activity Activity: increase activity as tolerated Diet: diabetic diet
--- NOTE | 2018-08-17 11:12 | Event Note ---
Date of Encounter: 08/17/18 Time of Encounter: 11:11 - Cardiology Event Note Cardiology signed off. LHC completed yesterday for abnormal stress test. LHC showed minimal CAD. Continue aspirin and risk factor modification. Healthy heart diet and exercise. Follow-up with PCP.
[2018-08-17 13:45] LABS: Estimated Average Glucose 174 mg/dl; Hemoglobin A1C 7.7 %
== END 2018-08-17 10:02 | disposition home or self-care (01) ==
LOC: 3BNU
PROVIDERS: ADMIT Family Medicine; ATTEND Family Medicine